=== PATIENT | male | born 1970 | race Caucasian/White ===

== ENCOUNTER → 2018-03-08 | Outpatient (REF) | payer OTHER ==
[2018-03-08 18:17] LABS: ESTIMATED AVERAGE GLUCOSE 100 MG/DL (60-110); HEMOGLOBIN A1c 5.1 %
[2018-03-08 18:25] LABS: CHOLESTEROL LEVEL 249 MG/DL (<200); CHOLESTEROL RISK RATIO 6.916 (<5); HDL CHOLESTEROL 36 MG/DL (>40); LDL CHOLESTEROL 178 MG/DL (<100); NON-HDL-C 213 MG/DL; TRIGLYCERIDES LEVEL 177 MG/DL (<150)
[2018-03-09 12:13] LABS: HEPATITIS C VIRUS ABY INDEX 0.1 INDEX (<0.8)
[2018-03-09 12:13] LABS: HIV 1&2 SCREEN CENTAUR NEGATIVE (NEGATIVE)
== END ==
LOC: M SFHCLERA 10:04
DX: E66.3 Overweight (principal); Z87.898 Personal history of other specified conditions

== ENCOUNTER → 2018-04-17 | Outpatient (REF) | payer OTHER ==
[2018-04-17 12:33] LABS: FREE T4 0.69 NG/DL (0.76-1.46)
== END ==
LOC: M SFHCLERA 09:22
DX: R79.89 Other specified abnormal findings of blood chemistry (principal)
CPT/HCPCS: 84443

== ENCOUNTER → 2018-05-14 | Outpatient (REF) | payer OTHER ==
[2018-05-14 17:18] LABS: FREE T4 0.69 NG/DL (0.76-1.46)
== END ==
LOC: M SFHCLERA 13:01
DX: E03.9 Hypothyroidism, unspecified (principal)
CPT/HCPCS: 84443

== ENCOUNTER → 2020-04-20 | Outpatient (CLI) | payer OTHER ==
[~2020-04-20] MED LIST: ISOVUE-370 76% 100ML VIAL As Ordered ONE
--- NOTE | 2020-04-20 12:16 | REP ---
INDICATION: [facility] FILE ROOM. COMPARISON: None. TECHNIQUE: Helical scanning is acquired. 5 mm axial images were reformatted. Coronal MPR images were generated. FINDINGS: Bone window settings demonstrate an intact bony calvarium. There is no evidence of skull fracture or incidental bony calvarial lesion. There is mild mucosal thickening affecting the ethmoid air cells bilaterally. The visualized paranasal sinuses appear otherwise clear. No intraorbital abnormality is seen. On soft tissue window setting images; the lateral, third, and fourth ventricles are normal in size and position. De La Torre-white differentiation pattern is normal above and below the tentorium. There are is no evidence of intracranial hemorrhage. No mass, edema, infarction, or midline shift is seen. No extra-axial fluid collection is appreciated. IMPRESSION: Mild bilateral ethmoid paranasal sinus mucosal thickening. Otherwise negative noncontrast head CT. <Electronically signed by Gabe Kahn > 04/20/20 [id number]
--- NOTE | 2020-04-20 12:18 | REP ---
INDICATION: TIA. COMPARISON: None. TECHNIQUE: CT contrast dose: 100 ml of intravenous Isovue 370. CT technique: Helical scanning is acquired. 2 mm axial images are reformatted. Maximal intensity projection and multiplanar re-formation images are generated along with 3-D surface rendered color imaging which is viewed rotational. FINDINGS: Distal vertebral arteries are patent and codominant. Basilar artery is tortuous but widely patent. Posterior cerebral and superior cerebellar vessels are unremarkable. The distal internal carotid arteries are intact. Anterior middle cerebral arteries have a normal appearance. There is no evidence of boothe aneurysm or arteriovenous malformation. No vessel cutoff is seen. The dural sinuses in straight sinus appear intact and are patent. No venous abnormality is seen. Surface rendered 3D images show no additional abnormality. IMPRESSION: Unremarkable CT angiography of the brain with IV contrast. <Electronically signed by Gabe Kahn > 04/20/20 [id number]
== END ==
LOC: M RAD 10:51
PROVIDERS: ATTEND Psychiatry & Neurology Neurology
DX: G45.9 Transient cerebral ischemic attack, unspecified (principal)
CPT/HCPCS: 70450; 70496; Q9967

== ENCOUNTER → 2020-07-30 | Outpatient (REF) | LOC: M LAB REF 14:28 | PROVIDERS: ATTEND Physician Assistant Medical | DX: E03.9 Hypothyroidism, unspecified (principal) ==

== ENCOUNTER → 2021-09-06 | Outpatient (CLI) | payer OTHER ==
[~2021-09-06] MED LIST changes: +ECOT81TA5 PO; +ELIQ2.5T PO; -ISOVUE-370 76% 100ML VIAL As Ordered ONE; +PROP20TA72 PO; +SERT-141 PO
[2021-09-06 13:46] LABS: RHEUMATOID FACTOR QUANT < 10.0 IU/ML (<15.0)
== END ==
LOC: M LAB 11:10
PROVIDERS: ATTEND Ophthalmology
DX: H20.9 Unspecified iridocyclitis (principal)